=== PATIENT | male | born 2000 | race Caucasian/White ===

== ENCOUNTER 2023-06-13 21:47 | Emergency (ER) | payer OTHER ==
[2023-06-13] MEDS: SODIUM CHLORIDE 0.9% 1,000 ML IV ONE (22:30)
[2023-06-13] MEDS: KETOROLAC 15 MG/ML 1 ML VIAL IVP STA (22:31)
[2023-06-13] MEDS: ONDANSETRON 4 MG/2 ML VIAL IVP STA (22:33)
[2023-06-13 22:42] VITALS: TEMP 97.4
--- NOTE | 2023-06-13 22:50 | ED ---
Abdominal Pain HPI - General Source: patient, family Mode of arrival: ambulatory Limitations: no limitations <Jean Navarrete - Last Filed: 06/14/23 00:35> <Manny Fajardo - Last Filed: 06/14/23 02:47> - General Chief Complaint: Abdominal Pain Stated Complaint: Abd/Side Pain Time Seen by Provider: 06/13/23 22:16 - History of Present Illness Initial Comments: 22-year-old male presenting with chief complaint of left flank pain. Patient has a known kidney stone to the left side. States that he had imaging about a month and a half ago. States that today he has been nauseated and vomiting. Has been unable to keep any food or drink down. He has had a decreased appetite for the last 2 days. No dysuria or hematuria. No fevers or chills. (Jean Navarrete) - Related Data Previous Rx's Medication Instructions Recorded Acetaminophen-Codeine 300-30mg 1 tab PO Q6H PRN #12 tablet 01/01/16 [Tylenol #3] Ibuprofen [Motrin] 400 mg PO Q6HR PRN #15 tab 01/01/16 HYDROcodone/APAP 7.5-325MG [[place] 1 tab PO Q6HR PRN 3 Days #12 tab 06/14/23 7.5-325] Metoclopramide [Reglan] 10 mg PO TID PRN #15 tab 06/14/23 Tamsulosin [Flomax] 0.4 mg PO DAILY #7 cap 06/14/23 Allergies Allergy/AdvReac Type Severity Reaction Status Date / Time No Known Allergies Allergy Verified 06/13/23 22:16 Review of Systems ROS Other: All systems not noted in ROS Statement are negative. <Jean Navarrete - Last Filed: 06/14/23 00:35> ROS Other: All systems not noted in ROS Statement are negative. <Manny Fajardo - Last Filed: 06/14/23 02:47> ROS Statement: Those systems with pertinent positive or pertinent negative responses have been documented in the HPI. Past Medical History Past Medical History: No Reported History History of Any Multi-Drug Resistant Organisms: None Reported Additional Past Surgical History / Comment(s): tubes in ears, testicular surgery Past Psychological History: No Psychological Hx Reported Past Alcohol Use History: None Reported Past Drug Use History: None Reported <Jean Navarrete - Last Filed: 06/14/23 00:35> General Exam Limitations: no limitations General appearance: alert, in no apparent distress Head exam: Present: atraumatic, normocephalic Eye exam: Present: normal appearance, EOMI Neck exam: Present: normal inspection Respiratory exam: Present: normal lung sounds bilaterally. Absent: respiratory distress, wheezes, rales, rhonchi, stridor Cardiovascular Exam: Present: regular rate, normal rhythm, normal heart sounds. Absent: systolic murmur, diastolic murmur, rubs, gallop, clicks GI/Abdominal exam: Present: soft, tenderness (Left-sided tenderness). Absent: distended, guarding, rebound, rigid Back exam: Absent: CVA tenderness (R), CVA tenderness (L) Neurological exam: Present: alert, oriented X3 Psychiatric exam: Present: normal affect, normal mood Skin exam: Present: warm, dry <Jean Navarrete - Last Filed: 06/14/23 00:35> Course Vital Signs 06/13/23 06/14/23 22:09 01:36 Temperature 97.4 F L Pulse Rate 53 L 68 Respiratory 22 18 Rate Blood Pressure 124/82 106/63 O2 Sat by Pulse 97 100 Oximetry Medical Decision Making <Jean Navarrete - Last Filed: 06/14/23 00:35> <Manny Fjaardo - Last Filed: 06/14/23 02:47> - Medical Decision Making Was pt. sent in by a medical professional or institution (, PA, [employer] W[employer]ING TECHNICIAN, urgent care, hospital, or alf...) When possible be specific @ -[No] Did you speak to anyone other than the patient for history (EMS, parent, family, police, friend...)? What history was obtained from this source @ -[No] Did you review nursing and triage notes (agree or disagree)? Why? @ -[I reviewed and agree with nursing and triage notes] Were old charts reviewed (outside hosp., previous admission, EMS record, old EKG, old radiological studies, urgent care reports/EKG's, alf records)? Report findings @ -[No old charts were reviewed] Differential Diagnosis (chest pain, altered mental status, abdominal pain women, abdominal pain men, vaginal bleeding, weakness, fever, dyspnea, syncope, headache, dizziness, GI bleed, back pain, seizure, CVA, palpatations, mental health, musculoskeletal)? @ -[facility] Differential Abdominal Pain Men: Appendicitis, cholecystitis, diverticulosis, ischemic bowel, pancreatitis, hepatitis, UTI, gastroenteritis, AAA, incarcerated hernia, bowel obstruction, constipation, inflammatory bowel, hepatitis, peptic ulcer disease, splenic infarction, perforated viscus, testicular torsion... This is not meant to be an all-inclusive list EKG interpreted by me (3pts min.). @ -[As above] X-rays interpreted by me (1pt min.). @ -[None done] CT interpreted by me (1pt min.). @ -CT shows moderately severe left hydronephrosis. There is a 5 x 7 x 11 mm obstructing left UPJ calculus U/S interpreted by me (1pt. min.). @ -[None done] What testing was considered but not performed or refused? (CT, X-rays, U/S, labs)? Why? @ -[None] What meds were considered but not given or refused? Why? @ -[None] Did you discuss the management of the patient with other professionals (professionals i.e. , PA, [employer] W[employer]ING TECHNICIAN, lab, RT, psych nurse, social media director, roller hand, teacher, credit risk review officer, case reviewer)? Give summary @ -[No] Was smoking cessation discussed for >3mins.? @ -[No] Was critical care preformed (if so, how long)? @ -[No] Were there social determinants of health that impacted care today? How? (Homelessness, low income, unemployed, alcoholism, drug addiction, transportation, low edu. Level, literacy, decrease access to med. care, penitentiary, rehab)? @ -[No] Was there de-escalation of care discussed even if they declined (Discuss DNR or withdrawal of care, Hospice)? DNR status @ -[No] What co-morbidities impacted this encounter? (DM, HTN, Smoking, COPD, CAD, Cancer, CVA, ARF, Chemo, Hep., AIDS, mental health diagnosis, sleep apnea, morbid obesity)? @ -[None] Was patient admitted / discharged? Hospital course, mention meds given and route, prescriptions, significant lab abnormalities, going to OR and other pertinent info. @ -22-year-old male presenting with chief complaint of left-sided flank pain. He has known history of kidney stones. History and physical exam are conducted. Urine is positive for large blood with greater than [address] shows obstructing 5 x 7 x 11 mm calculus in the left UPJ. On reassessment patient states pain has been somewhat alleviated it is a 5 out of 10. Patient has been given more pain and nausea medication. Signed out to MATTHEW Fajardo (Jean Navarrete) Patient signed out to me pending pain control. After pain control and antiemetics patient reports pain and nausea at 0. Due to good pain control at this time, patient discharged home in stable condition with urinary strainer, referral to see urology. Prescriptions for [place], Flomax, and Zofran. Discussed strict return precautions with patient who verbalized agreement. (Manny Fajardo) - Lab Data Lab Results 06/13/23 Range/Units 22:37 Urine Color Light Red Urine Appearance Cloudy (Clear) Urine pH 7.5 (5.0-8.0) Ur Specific [place] 1.025 (1.001-1.035) Urine Protein 2+ H (Negative) Urine Glucose (UA) Negative (Negative) Urine Ketones 2+ H (Negative) Urine Blood Large H (Negative) Urine Nitrite Negative (Negative) Urine Bilirubin Negative (Negative) Urine Urobilinogen <2.0 (<2.0) mg/dL Ur Leukocyte Esterase Trace H (Negative) Urine RBC >182 H (0-5) /hpf Urine WBC 4 (0-5) /hpf Ur Squamous Epith Cells 5 H (0-4) /hpf Urine Mucus Many H (None) /hpf Disposition <Jean Navarrete - Last Filed: 06/14/23 00:35> Is patient prescribed a controlled substance at d/c from ED?: Yes When asked, does pt state using other controlled substances?: No If prescribed controlled substance>3 days was MAPS reviewed?: Prescribed <3 Days <Manny Fajardo - Last Filed: 06/14/23 02:47> Clinical Impression: Kidney stone Disposition: HOME SELF-CARE Condition: Good Additional Instructions: Please return to the Emergency Department if symptoms worsen or any other concerns. Please follow-up with urology. Prescriptions: Tamsulosin [Flomax] 0.4 mg PO DAILY #7 cap HYDROcodone/APAP 7.5-325MG [[place] 7.5-325] 1 tab PO Q6HR PRN 3 Days #12 tab PRN Reason: Pain Metoclopramide [Reglan] 10 mg PO TID PRN #15 tab PRN Reason: Nausea Referrals: Tom Nichole MD [STAFF PHYSICIAN] - 1-2 days Robert Braun MD [STAFF PHYSICIAN] - 1-2 days
[2023-06-13 22:52] LABS: Appearance,Urine Cloudy (Clear); Bilirubin,Urine Negative (Negative); Blood,Urine Large (Negative); Color,Urine Light Red; Glucose,Urine (UA) Negative (Negative); Ketones,Urine 2+ (Negative); Leukocyte Esterase,Urine Trace (Negative); Mucus,Urine Many /hpf; Nitrite,Urine Negative (Negative); PH, Urine 7.5 (5.0-8.0); Protein,Urine 2+ (Negative); RBC,Urine >182 /hpf (0-5); Specific Gravity,Urine 1.025 (1.001-1.035); Squamous Epithelial Cell,Urine 5 /hpf (0-4); Urobilinogen,Urine <2.0 mg/dL (<2.0); WBC,Urine 4 /hpf (0-5)
--- NOTE | 2023-06-14 00:03 | CT ---
EXAM: CT Abdomen and Pelvis Without Intravenous Contrast CLINICAL HISTORY: L flank pain TECHNIQUE: Axial computed tomography images of the abdomen and pelvis without intravenous contrast. CTDI is 5.2 mGy and DLP is 285.3 mGy-cm. This CT exam was performed using one or more of the following dose reduction techniques: automated exposure control, adjustment of the mA and/or kV according to patient size, and/or use of iterative reconstruction technique. COMPARISON: CT December 19, 2015. FINDINGS: ABDOMEN: Liver: Unremarkable. Gallbladder and bile ducts: Unremarkable. No calcified stones. No ductal dilation. Pancreas: Unremarkable. No ductal dilation. Spleen: Unremarkable. No splenomegaly. Adrenals: Unremarkable. No mass. Kidneys and ureters: Moderately severe left hydronephrosis. There is a 5 x 7 x 11 mm obstructing left UPJ calculus. Numerous bilateral nonobstructing calculi in the kidneys. Stomach and bowel: Unremarkable. No obstruction. No mucosal thickening. PELVIS: Appendix: No findings to suggest acute appendicitis. Bladder: Unremarkable. No stones. ABDOMEN and PELVIS: Intraperitoneal space: Unremarkable. No free air. No significant fluid collection. Bones/joints: No acute findings. Soft tissues: Unremarkable. Vasculature: Unremarkable. No abdominal aortic aneurysm. Lymph nodes: Unremarkable. No enlarged lymph nodes. IMPRESSION: Moderately severe left hydronephrosis. There is a 5 x 7 x 11 mm obstructing left UPJ calculus.
[2023-06-14] MEDS: METOCLOPRAMIDE 5 MG/ML 2 ML VIAL IVP STA (01:38)
[2023-06-14] MEDS: MORPHINE SULFATE 4 MG/ML SYRINGE IVP STA (01:39)
[2023-06-14] MEDS: ONDANSETRON 4 MG ODT STARTER PACK 2 TAB BTL PO STA (02:59)
[2023-06-14] MEDS: ACET/COD 300 MG/30 MG STARTER PACK 6 TAB BTL PO STA (02:59)
[2023-06-14 03:21] VITALS: BP 112/66; PULSE 77; RESP 16
== END 2023-06-14 03:03 | disposition home or self-care (01) ==
LOC: EC 21:47
DX: N13.2 Hydronephrosis with renal and ureteral calculous obstruction (principal)
CPT/HCPCS: 81001; 74176; 99284; 96374; 96375 ×3; 96361 ×4; J2270; J2765; J2405; J1885; S0119

== ENCOUNTER → 2023-06-27 | Outpatient (CLI) | payer OTHER ==
[2023-06-27 15:51] LABS: Basophils # (A) 0.06 X 10*3/uL (0.00-0.10); Basophils % (A) 0.8 %; Eosinophils # (A) 0.21 X 10*3/uL (0.04-0.35); Eosinophils % (A) 2.8 %; HCT 42.1 % (39.6-50.0); HGB 13.9 g/dL (13.0-17.0); Lymphocytes # (A) 2.93 X 10*3/uL (0.90-5.00); Lymphocytes % (A) 39.2 %; MCH 30.9 pg (27.0-32.0); MCV 93.6 FL (80.0-97.0); Mean Platelet Volume 10.2 FL (9.5-12.2); Monocytes # (A) 0.65 X 10*3/uL (0.20-1.00); Monocytes % (A) 8.7 %; NRBC Per 100 WBC 0 X 10*3/uL (0.00-0.01); Neutrophils # (A) 3.61 X 10*3/uL (1.80-7.70); Neutrophils % (A) 48.2 %; Platelet Count 275 X 10*3/uL (140-440); RDW 12.2 % (11.5-14.5); WBC 7.48 X 10*3/uL (4.50-10.00)
[2023-06-27 16:27] LABS: Appearance,Urine Clear (Clear); Bilirubin,Urine Negative (Negative); Blood,Urine Small (Negative); Color,Urine Yellow (Yellow); Ketones,Urine Negative (Negative); Nitrite,Urine Negative (Negative); Specific Gravity,Urine 1.019 (1.001-1.030); Urobilinogen,Urine 0.2 E.U./DL
[2023-06-27 16:39] LABS: Blood Urea Nitrogen 12.6 mg/dL (9.0-27.0); Chloride 106 mmol/L (96-109); Potassium 4.4 mmol/L (3.5-5.5); Sodium 145 mmol/L (135-145)
[2023-06-27 16:44] LABS: Bacteria,Urine None Seen (None Seen); Calcium Oxalate Crystals,Urine Present (None Seen)
== END | disposition home or self-care (01) ==
LOC: LABWHC1 08:09
PROVIDERS: ATTEND Urology
DX: Z01.812 Encounter for preprocedural laboratory examination (principal); N20.1 Calculus of ureter
CPT/HCPCS: 36415; 80051; 81001; 82565; 84520; 85025

== ENCOUNTER 2023-06-30 10:20 | Day surgery (SDC) | payer OTHER ==
--- NOTE | 2023-06-29 18:37 | P.GSHP ---
History of Present Illness H&P Date: 06/29/23 22 yo male with an 11x5 proximal left ureteral stone with pain comes for eswl left to hopefully rid him of his stone, obstruction and pain. Alternmatives have been discussed. - Constitutional Constitutional: Denies chills, Denies fever - EENT Eyes: denies blurred vision, denies pain Ears, nose, mouth and throat: Denies headache, Denies sore throat - Cardiovascular Cardiovascular: Denies chest pain, Denies shortness of breath - Respiratory Respiratory: Denies cough, Denies 7 - Gastrointestinal Gastrointestinal: Denies abdominal pain, Denies diarrhea, Denies nausea, Denies vomiting - Genitourinary (Female) Genitourinary: Denies dysuria, Denies hematuria - Genitourinary (Male) Genitourinary: Denies dysuria, Denies hematuria - Musculoskeletal Musculoskeletal: Denies myalgias - Integumentary Integumentary: Denies pruritus, Denies rash - Neurological Neurological: Denies numbness, Denies weakness - Psychiatric Psychiatric: Denies anxiety, Denies depression - Endocrine Endocrine: Denies fatigue, Denies weight change Past Medical History Past Medical History: No Reported History Additional Past Medical History / Comment(s): Nephrolithiasis/passed stones on own previously History of Any Multi-Drug Resistant Organisms: None Reported Past Surgical History: Ear Surgery Additional Past Surgical History / Comment(s): tubes in ears, testicular surgery Past Anesthesia/Blood Transfusion Reactions: No Reported Reaction Smoking Status: Current some day smoker, Vaper - Past Family History Father Family Medical History: Diabetes Mellitus Medications and Allergies Home Medications Medication Instructions Recorded Confirmed Type HYDROcodone/APAP 5-325MG [[place] 1 tab PO Q4H PRN 06/27/23 06/27/23 History 5-325] Allergies Allergy/AdvReac Type Severity Reaction Status Date / Time No Known Allergies Allergy Verified 06/27/23 09:32 Surgical - Exam - General well developed, well nourished, no distress - Eyes normal ocular movement, no icteric - ENT no hearing loss, no congestion - Neck no masses, trachea midline - Respiratory normal respiratory effort, clear to auscultation - Abdomen Abdomen: soft, non tender, no guarding, no rigid, no rebound - Integumentary no rash, no abnormal pigmentation - Neurologic no disoriented, no combative - Psychiatric oriented to time, oriented to person, oriented to place, speech is normal, memory intact Results - Imaging CT scan - abdomen: image reviewed CT scan - pelvis: report reviewed, image reviewed Assessment and Plan Assessment: Impression: left proximal ureteral stone Plan: eswl left
[~2023-06-30 10:20] MED LIST: LIDOCAINE 1% (10MG/ML) FOR IV START INTRADERMA PRN
[2023-06-30] MEDS: LACTATED RINGERS 1,000 ML IV SCH (10:57)
[2023-06-30 11:16] VITALS: TEMP 98.4
--- NOTE | 2023-06-30 11:39 | XR ---
EXAMINATION TYPE: XR KUB DATE OF EXAM: 06/30/2023 COMPARISON: 12/19/2015 INDICATION: Lithotripsy TECHNIQUE: Single view abdomen spine view FINDINGS: There is a normal bowel gas pattern. Fecal debris is throughout the colon. Psoas margins are normal. No organomegaly is present. There is a 1.5 cm calcification inferior pole left kidney. Punctate peripheral calcification 0.4 cm m ay be present at the inferior pole. This could be within fecal debris. IMPRESSION: 1. Inferior pole 1.5 cm left renal calcification
[2023-06-30] MEDS ORDERED: fentaNYL (PF) 50 MCG/ML 2 ML AMP ONE (12:00)
[2023-06-30] MEDS ORDERED: LIDOCAINE 1% INJ 10MG/ML (20 ML MDV) ONE (12:00)
[2023-06-30] MEDS ORDERED: PROPOFOL 10 MG/ML 20 ML VIAL IV ONE (12:00)
[2023-06-30] MEDS ORDERED: MIDAZOLAM 2 MG/2 ML VIAL ONE (12:00)
--- NOTE | 2023-06-30 12:27 | P.OP ---
Date of Procedure: 06/30/23 Preoperative Diagnosis: Left ureteral calculus, proximal Postoperative Diagnosis: Same Procedure(s) Performed: Extracorporeal shockwave lithotripsy, 2500 shocks and energy level IV Anesthesia: MAC Surgeon: Palomo Russell Pathology: none sent Condition: stable Disposition: PACU Indications for Procedure: The patient is 22. His 11 x 5 proximal ureteral stone on the left. He comes for shockwave lithotripsy Description of Procedure: Patient brought to the operative suite. Given IV sedation on the lithotripsy table. The stone was seen in 2 views of fluoroscopy. A total 2500 shocks at energy level IV with a compact 2 delta Dornier lithotripter was administered.Stone appears to fracture. The patient awake and returned recovery in good condition. He tolerated the procedure well be discharged home upon recovery and found the office in one week.
[2023-06-30] MEDS ORDERED: HYDROcodone/APAP 5-325MG 1 EACH TAB ONE (14:03)
[2023-06-30] MEDS: HYDROcodone/APAP 5-325MG 1 EACH TAB PO ONE (14:09)
[2023-06-30 14:48] VITALS: BP 126/84; PULSE 71; RESP 18
== END 2023-06-30 14:37 | disposition home or self-care (01) ==
LOC: ORWHC2ENDO 10:20
PROVIDERS: ATTEND Urology
DX: N20.1 Calculus of ureter (principal); F17.200 Nicotine dependence, unspecified, uncomplicated; Z83.3 Family history of diabetes mellitus; Z79.899 Other long term (current) drug therapy; Z98.890 Other specified postprocedural states
CPT/HCPCS: 74018; 50590; J2250; J2001; J3010; J2704

== ENCOUNTER 2023-07-02 03:32 | Emergency (ER) | payer OTHER ==
[2023-07-02 04:18] VITALS: RESP 18
--- NOTE | 2023-07-02 04:19 | ED ---
Abdominal Pain HPI - General Chief Complaint: Abdominal Pain Stated Complaint: Post-Op Complications, GI Time Seen by Provider: 07/02/23 03:46 Source: patient, RN notes reviewed, old records reviewed Mode of arrival: ambulatory Limitations: no limitations - History of Present Illness Initial Comments: This is a 22-year-old male to the ER for evaluation today. Patient [place] for evaluation of severe abdominal pain please he may be having constipation issues, recently had stent placed with lithotripsy for kidney stone. Patient was apparently spoke with fragments of kidney stone but has severe pain here eliecer [place] Complaint: abdominal pain, flank pain, other (Known kidney stones with stent placed) -: days(s) Location: suprapubic Radiation: suprapubic Migration to: suprapubic Severity: severe Severity scale (1-10): 10 Quality: cramping, stabbing Consistency: constant Improves With: nothing Associated Symptoms: nausea, vomiting - Related Data Home Medications Medication Instructions Recorded Confirmed HYDROcodone/APAP 5-325MG [[place] 1 tab PO Q4H PRN 06/27/23 06/30/23 5-325] Allergies Allergy/AdvReac Type Severity Reaction Status Date / Time No Known Allergies Allergy Verified 07/02/23 03:47 Review of Systems ROS Statement: Those systems with pertinent positive or pertinent negative responses have been documented in the HPI. ROS Other: All systems not noted in ROS Statement are negative. Past Medical History Past Medical History: No Reported History Additional Past Medical History / Comment(s): Kidney stone History of Any Multi-Drug Resistant Organisms: None Reported Additional Past Surgical History / Comment(s): tubes in ears, testicular surgery Past Psychological History: No Psychological Hx Reported Smoking Status: Current every day smoker Past Alcohol Use History: None Reported Past Drug Use History: None Reported General Exam Limitations: no limitations General appearance: alert, in no apparent distress Head exam: Present: atraumatic, normocephalic, normal inspection Eye exam: Present: normal appearance, PERRL, EOMI. Absent: scleral icterus, conjunctival injection, periorbital swelling ENT exam: Present: normal exam, mucous membranes moist Neck exam: Present: normal inspection. Absent: tenderness, meningismus, lymphadenopathy Respiratory exam: Present: normal lung sounds bilaterally. Absent: respiratory distress, wheezes, rales, rhonchi, stridor Cardiovascular Exam: Present: regular rate, normal rhythm, normal heart sounds. Absent: systolic murmur, diastolic murmur, rubs, gallop, clicks GI/Abdominal exam: Present: soft, normal bowel sounds. Absent: distended, tenderness, guarding, rebound, rigid Extremities exam: Present: normal inspection, full ROM, normal capillary refill. Absent: tenderness, pedal edema, joint swelling, calf tenderness Back exam: Present: normal inspection Neurological exam: Present: alert, oriented X3, CN II-XII intact Psychiatric exam: Present: normal affect, normal mood Skin exam: Present: warm, dry, intact, normal color. Absent: rash Course Vital Signs 07/02/23 07/02/23 03:46 06:28 Temperature 98.7 F 98.0 F Pulse Rate 71 70 Respiratory 18 18 Rate Blood Pressure 118/79 125/74 O2 Sat by Pulse 99 98 Oximetry - Reevaluation(s) Reevaluation #1: 07/02/23 05:46 Medical records reviewed Reevaluation #2: 07/02/23 05:46 Patient's pain is improved Reevaluation #3: 07/02/23 05:46 Patient informed of results and questions answered Reevaluation #4: Was pt. sent in by a medical professional or institution (, PA, TRUSS ASSEMBLER, urgent care, hospital, or halfway...) When possible be specific @ -no Did you speak to anyone other than the patient for history (EMS, parent, family, police, friend...)? What history was obtained from this source @ -no Did you review nursing and triage notes (agree or disagree)? Why? @ -agree Are old charts reviewed (outside hosp., previous admission, EMS record, old EKG, old radiological studies, urgent care reports/EKG's, halfway records)? Report findings @ -yes Differential Diagnosis (chest pain, altered mental status, abdominal pain women, abdominal pain men, vaginal bleeding, weakness, fever, dyspnea, syncope, headache, dizziness, GI bleed, back pain, seizure, CVA, palpatations, mental health, musculoskeletal)? @ -prior EKG interpreted by me (3pts min.). @ -no X-rays interpreted by me (1pt min.). @ -no CT interpreted by me (1pt min.). @ -yes negative for acute disease U/S interpreted by me (1pt. min.). @ -no What testing was considered but not performed or refused? (CT, X-rays, U/S, labs)? Why? @ -none What meds were considered but not given or refused? Why? @ -none Did you discuss the management of the patient with other professionals (professionals i.e. , PA, [employer]USS ASSEMBLER, lab, RT, psych nurse, healthcare social worker, chief librarian branch, teacher, environmental technical officer, telephonic nurse case manager)? Give summary @ -no Was smoking cessation discussed for >3mins.? @ -no Was critical care preformed (if so, how long)? @ -no Were there social determinants of health that impacted care today? How? (Homelessness, low income, unemployed, alcoholism, drug addiction, transportation, low edu. Level, literacy, decrease access to med. care, senior care, rehab)? @ -none Was there de-escalation of care discussed even if they declined (Discuss DNR or withdrawal of care, Hospice)? DNR status @ -no What co-morbidities impacted this encounter? (DM, HTN, Smoking, COPD, CAD, Cancer, CVA, ARF, Chemo, Hep., AIDS, mental health diagnosis, sleep apnea, morbid obesity)? @ -none Was patient admitted / discharged? Hospital course, mention meds given and route, prescriptions, significant lab abnormalities, going to OR and other pertinent info. @ - 22 male to ER for evaluation of severe abdominal pain. Patient has no evidence of constipation does have persistent kidney stones which do appear to be moving with adequate stent placement. Patient can be discharged home with pain control Discharge Undiagnosed new problem with uncertain prognosis? @ -no Drug Therapy requiring intensive monitoring for toxicity (Heparin, Nitro, Insulin, Cardizem)? @ -no Were any procedures done? @ -no Diagnosis/symptom? @ -Kidney stones with stent placement abdominal pain Acute, or Chronic, or Acute on Chronic? @ -Acute Uncomplicated (without systemic symptoms) or Complicated (systemic symptoms)? @ -Complicated Side effects of treatment? @ -no Exacerbation, Progression, or Severe Exacerbation? @ -exacerbation Poses a threat to life or bodily function? How? (Chest pain, [place], CA, pneumonia, PE, COPD, DKA, ARF, appy, cholecystitis, CVA, Diverticulitis, Homicidal, Suicidal, threat to staff... and all critical care pts) @ -no Medical Decision Making - Medical Decision Making 22 male to ER for evaluation of severe abdominal pain. Patient has no evidence of constipation does have persistent kidney stones which do appear to be moving with adequate stent placement. Patient can be discharged home with pain control - Lab Data Result diagrams: 07/02/23 04:38 07/02/23 04:38 Lab Results 07/02/23 07/02/23 07/02/23 Range/Units 04:38 04:38 04:38 WBC 13.7 H (4.0-11.0) k/uL RBC 4.84 (4.30-5.90) m/uL Hgb 14.9 (13.0-17.5) gm/dL Hct 44.4 (39.0-53.0) % MCV 91.8 (80.0-100.0) fL MCH 30.9 (25.0-35.0) pg MCHC 33.6 (31.0-37.0) g/dL RDW 12.3 (11.5-15.5) % Plt Count 288 (150-450) k/uL MPV 7.6 Neutrophils % 82 % Lymphocytes % 9 % Monocytes % 7 % Eosinophils % 0 % Basophils % 0 % Neutrophils # 11.1 H (1.3-7.7) k/uL Lymphocytes # 1.3 (1.0-4.8) k/uL Monocytes # 1.0 (0-1.0) k/uL Eosinophils # 0.0 (0-0.7) k/uL Basophils # 0.1 (0-0.2) k/uL Sodium 138 (137-145) mmol/L Potassium 3.9 (3.5-5.1) mmol/L Chloride 101 (98-107) mmol/L Carbon Dioxide 27 (22-30) mmol/L Anion Gap 10 mmol/L BUN 15 (9-20) mg/dL Creatinine 1.21 (0.66-1.25) mg/dL Est GFR (CKD-EPI)AfAm >90 (>60 ml/min/1.73 sqM) Est GFR (CKD-EPI)NonAf 86 (>60 ml/min/1.73 sqM) Glucose 116 H (74-99) mg/dL Calcium 10.0 (8.4-10.2) mg/dL Total Bilirubin 1.6 H (0.2-1.3) mg/dL AST 22 (17-59) U/L ALT 14 (4-49) U/L Alkaline Phosphatase 73 (38-126) U/L Total Protein 7.8 (6.3-8.2) g/dL Albumin 5.0 (3.5-5.0) g/dL Amylase 95 (30-110) U/L Lipase 73 (23-300) U/L Urine Color Light Red Urine Appearance Cloudy (Clear) Urine pH 6.5 (5.0-8.0) Ur Specific [place] 1.024 (1.001-1.035) Urine Protein 2+ H (Negative) Urine Glucose (UA) Negative (Negative) Urine Ketones 2+ H (Negative) Urine Blood Large H (Negative) Urine Nitrite Negative (Negative) Urine Bilirubin Negative (Negative) Urine Urobilinogen <2.0 (<2.0) mg/dL Ur Leukocyte Esterase Moderate H (Negative) Urine RBC >182 H (0-5) /hpf Urine WBC 55 H (0-5) /hpf Ur Squamous Epith Cells 3 (0-4) /hpf Amorphous Sediment Rare H (None) /hpf Urine Bacteria Moderate H (None) /hpf Hyaline Casts 9 H (0-2) /lpf Urine Mucus Many H (None) /hpf - Radiology Data Radiology results: report reviewed (ET abdomen pelvis does show stent placement with stone fragments), image reviewed Disposition Clinical Impression: Kidney stone, Abdominal pain Disposition: HOME SELF-CARE Condition: Good Instructions (If sedation given, give patient instructions): Kidney Stones (ED) Is patient prescribed a controlled substance at d/c from ED?: No Referrals: Palomo Russell MD [STAFF PHYSICIAN] - 1-2 days Time of Disposition: 05:45
[2023-07-02] MEDS: SODIUM CHLORIDE 0.9% 1,000 ML IV STA (04:37)
[2023-07-02 04:51] LABS: Basophils # (A) 0.1 k/uL (0-0.2); Basophils % (A) 0 %; Eosinophils % (A) 0 %; HCT 44.4 % (39.0-53.0); HGB 14.9 gm/dL (13.0-17.5); Lymphocytes # (A) 1.3 k/uL (1.0-4.8); Lymphocytes % (A) 9 %; MCH 30.9 pg (25.0-35.0); MCHC 33.6 g/dL (31.0-37.0); MCV 91.8 fL (80.0-100.0); Mean Platelet Volume 7.6; Monocytes % (A) 7 %; Neutrophils # (A) 11.1 k/uL (1.3-7.7); Neutrophils % (A) 82 %; Platelet Count 288 k/uL (150-450); RBC 4.84 m/uL (4.30-5.90); RDW 12.3 % (11.5-15.5); WBC 13.7 k/uL (4.0-11.0)
[2023-07-02] MEDS: KETOROLAC 15 MG/ML 1 ML VIAL IVP STA (04:58)
[2023-07-02] MEDS: MORPHINE SULFATE 4 MG/ML SYRINGE IVP STA (04:58)
[2023-07-02] MEDS: ONDANSETRON 4 MG/2 ML VIAL IVP STA (04:59)
[2023-07-02 05:04] LABS: Appearance,Urine Cloudy (Clear); Color,Urine Light Red; PH, Urine 6.5 (5.0-8.0); Protein,Urine 2+ (Negative); Specific Gravity,Urine 1.024 (1.001-1.035)
[2023-07-02 05:05] LABS: Amorphous Sediment,Urine Rare /hpf; Bacteria,Urine Moderate /hpf; Bilirubin,Urine Negative (Negative); Blood,Urine Large (Negative); Glucose,Urine (UA) Negative (Negative); Hyaline Casts,Urine 9 /lpf (0-2); Ketones,Urine 2+ (Negative); Leukocyte Esterase,Urine Moderate (Negative); Mucus,Urine Many /hpf; Nitrite,Urine Negative (Negative); RBC,Urine >182 /hpf (0-5); Squamous Epithelial Cell,Urine 3 /hpf (0-4); Urobilinogen,Urine <2.0 mg/dL (<2.0); WBC,Urine 55 /hpf (0-5)
[2023-07-02 05:10] LABS: ALT 14 U/L (4-49); AST 22 U/L (17-59); African American GFR (CKD) >90 (>60 ml/min/1.73 sqM); Alkaline Phosphatase 73 U/L (38-126); Amylase 95 U/L (30-110); Anion Gap 10 mmol/L; Blood Urea Nitrogen 15 mg/dL (9-20); Carbon Dioxide 27 mmol/L (22-30); Chloride 101 mmol/L (98-107); Glucose 116 mg/dL (74-99); Lipase 73 U/L (23-300); Non-African American GFR(CKD) 86 (>60 ml/min/1.73 sqM); Potassium 3.9 mmol/L (3.5-5.1); Sodium 138 mmol/L (137-145); Total Bilirubin 1.6 mg/dL (0.2-1.3); Total Protein 7.8 g/dL (6.3-8.2)
--- NOTE | 2023-07-02 05:27 | CT ---
EXAMINATION TYPE: CT abdomen pelvis wo con DATE OF EXAM: 07/02/2023 HISTORY: Patient states unable to have a BM after having a kidney stone removed two days ago. CT DLP: 275.6 mGycm. Automated Exposure Control for Dose Reduction was Utilized. TECHNIQUE: CT scan of the abdomen and pelvis is performed without oral or IV contrast. COMPARISON: CT abdomen and pelvis June 13, 2023 FINDINGS: Within the limitations of a non-contrast study, the following observations are made. LUNG BASES: No significant abnormality is appreciated. LIVER/GB: No significant abnormality is appreciated. PANCREAS: No significant abnormality is seen. SPLEEN: No significant abnormality is seen. ADRENALS: No significant abnormality is seen. KIDNEYS: Persistent 2 nonobstructing right renal calculi measuring up to 4 mm in size. There are appr oximate 8 nonobstructing left renal calculi measuring up to 7 mm in size redemonstrated. No right-ramirez ed hydronephrosis. There are now 3 fragmented small calculi at site of prior 11 mm calculus in the pr oximal left ureter on coronal image 37 with persistent fairly stable moderate left-sided hydronephros is. Additional several smaller additional calcific fragments in the distal left ureter are seen along with a 6 mm calcific fragment that has passed into the bladder. Moderate concentric wall thickening in the urinary bladder on current study measures up to 10 mm in thickness. BOWEL: No significant abnormality is seen. GENITAL ORGANS: No gross abnormality seen. LYMPH NODES: No greater than 1cm abdominal or pelvic lymph nodes are appreciated. OSSEOUS STRUCTURES: No significant abnormality is seen. OTHER: No significant additional abnormality is seen. IMPRESSION: Interval successful lithotripsy or fragmentation of the 11 mm proximal left ureter calcul us. A few small calcific fragments have not removed, but the majority have passed into the distal lef t ureter and single fragment has passed into the bladder. Stable moderate left-sided hydronephrosis. Moderate concentric wall thickening in the bladder raises concern for acute bladder infection or cyst itis. Correlate clinically.
[2023-07-02] MEDS: Acetaminophen-Codeine 300-30mg TAB PO STA (06:20)
[2023-07-02] MEDS: ACET/COD 300 MG/30 MG STARTER PACK 6 TAB BTL PO STA (06:22)
[2023-07-02] MEDS: ONDANSETRON 4 MG ODT STARTER PACK 2 TAB BTL PO STA (06:22)
[2023-07-02 06:56] VITALS: BP 125/74; PULSE 70; TEMP 98
== END 2023-07-02 06:29 | disposition home or self-care (01) ==
LOC: EC 03:32
DX: N13.2 Hydronephrosis with renal and ureteral calculous obstruction (principal); F17.200 Nicotine dependence, unspecified, uncomplicated
CPT/HCPCS: 36415; 80053; 82150; 83690; 85025; 81001; 74176; 99284; 96374; 96375 ×2; 96361; J2270; J2405; J1885; S0119

== ENCOUNTER → 2023-07-11 | Outpatient (CLI) | payer OTHER ==
--- NOTE | 2023-07-11 14:16 | XR ---
KUB. HISTORY: Ureteral calculus COMPARISON: 06/30/2023. TECHNIQUE: 2 upright views of the abdomen were obtained. FINDINGS: The lung bases are clear. There is no free intraperitoneal air beneath the diaphragm. The bowel gas pattern is nonspecific and there is no evidence of obstruction. The large 15 mm lower pole left renal calculus has resolved.. There has been no change in the 4 to 5 mm left lower pole renal calcification. The osseous structures are intact. IMPRESSION: 1. Large 15 mm left renal calculus has resolved. 2. Persistent 4 to 5 mm left lower pole renal calculus persists. 3. Nonspecific bowel gas pattern. No free intraperitoneal air or bowel obstruction.
== END | disposition home or self-care (01) ==
LOC: RADXRMAIN 10:30
PROVIDERS: ATTEND Urology
DX: N20.2 Calculus of kidney with calculus of ureter (principal)
CPT/HCPCS: 74018